=== PATIENT | female | born 1960 | race Caucasian/White ===

== ENCOUNTER → 2016-12-11 | Outpatient (CLI) | payer BC ==
[~2016-12-11] MED LIST: ASCO500T3 PO; ATEN25TA PO; ATV/1 PO; BENZ100C6 PO; CHOL100010 PO; GFNSR600 PO; IBUP600T44 PO; LEVA1.258 INH; MULT-506 PO; PANT1TAB48 PO; VITA400C15 PO
--- NOTE | 2016-12-11 16:07 | MAMMOGRAPHY REPORT ---
BILATERAL DIGITAL SCREENING MAMMOGRAM TOMOSYNTHESIS WITH CAD: 12/11/2016 CLINICAL HISTORY: Routine screening. TECHNIQUE: Breast tomosynthesis in addition to standard 2D mammography was performed. Current study was also evaluated with a Computer Aided Detection (CAD) system. COMPARISON: Comparison is made to exams dated: 11/22/2015 mammogram, 11/19/2014 mammogram, 11/18/2013 ma mmogram, 11/17/2012 mammogram, 11/15/2011 mammogram, and 11/14/2010 mammogram - [facility] BREAST COMPOSITION: The tissue of both breasts is heterogeneously dense, which may obscure small mas ses. FINDINGS: There is a stable grouping of punctate microcalcifications in the posterior right breast, a long the posterior nipple line on the MLO view. There is a benign coarse calcification in the superi or right breast. No new suspicious mass, architectural distortion or cluster of microcalcifications is seen. IMPRESSION: ACR BI-RADS CATEGORY 1: NEGATIVE There is no mammographic evidence of malignancy. A 1 year screening mammogram is recommended. The pa tient will receive written notification of the results. Approximately 10% of breast cancers are not detected with mammography. A negative mammographic report should not delay biopsy if a clinically suggestive mass is present. Honey Mejía M.D. ay/:12/11/2016 15:42:08 Rn Outpatient Surgery: Caro ORELLANA(R)(M), [facility] letter sent: Normal 1/2 BI-RADS Code: ACR BI-RADS Category 1: Negative
== END | disposition home or self-care (01) ==
LOC: C.MAMM 11:23
PROVIDERS: ATTEND Obstetrics & Gynecology
DX: Z12.31 Encounter for screening mammogram for malignant neoplasm of breast (principal)

== ENCOUNTER → 2017-12-17 | Outpatient (CLI) | payer OTHER ==
[~2017-12-17] MED LIST changes: +BENZ-54 PO; -BENZ100C6 PO; +PANT1TAB3 PO; -PANT1TAB48 PO
--- NOTE | 2017-12-18 13:38 | MAMMOGRAPHY REPORT ---
BILATERAL DIGITAL SCREENING MAMMOGRAM TOMOSYNTHESIS WITH CAD: 12/17/2017 CLINICAL HISTORY: Routine screening. Patient has no complaints. TECHNIQUE: The study was acquired using full field digital technology and interpreted from soft copy. Breast tomosynthesis in addition to standard 2D mammography was performed. Current study was also ev aluated with a Computer Aided Detection (CAD) system. COMPARISON: Comparison is made to exams dated: 12/11/2016 mammogram, 11/22/2015 mammogram, 11/19/2014 ma mmogram, 11/17/2012 mammogram, 11/15/2011 mammogram, and 11/14/2010 mammogram - [facility] BREAST COMPOSITION: The tissue of both breasts is heterogeneously dense, which may obscure small mass es. FINDINGS: A stable faint grouping of punctate calcifications in the lateral right breast, which were present on prior mammograms dating back to at least 2008, therefore likely benign. No suspicious mass , architectural distortion or new cluster of microcalcifications is seen. IMPRESSION: ACR BI-RADS CATEGORY 1: NEGATIVE There is no mammographic evidence of malignancy. A 1 year screening mammogram is recommended.( [id number]) The patient will receive written notification of the results. Some breast cancers are not detected with mammography. A negative mammographic report should not ellie y biopsy if a clinically suggestive mass is present. Honey Mejía M.D. ay/:12/17/2017 15:59:52 Grounds Cleaner: RT Chloe(R)(M), [facility] letter sent: Normal 1/2 BI-RADS Code: ACR BI-RADS Category 1: Negative
== END | disposition home or self-care (01) ==
LOC: C.MAMM 11:01
PROVIDERS: ATTEND Obstetrics & Gynecology
DX: Z12.31 Encounter for screening mammogram for malignant neoplasm of breast (principal)